=== PATIENT | female | born 1970 ===

== ENCOUNTER 2021-01-02 14:07 | Emergency (ER) | payer SELFPAY ==
[~2021-01-02] VITALS: Ht 170.2 cm; Wt 45.4 kg
[2021-01-02 14:25] VITALS: BP 128/72
== END 2021-01-02 14:55 | disposition left against medical advice (07) ==
LOC: ER 14:07 → EDBD 14:07 → ER 14:55
DX: R55 Syncope and collapse (principal); Z53.21 Procedure and treatment not carried out due to patient leaving prior to being seen by health care provider